=== PATIENT | female | born 1955 | race Caucasian/White ===

== ENCOUNTER 2017-05-20 22:35 | Emergency (ER) | payer OTHER ==
[2017-05-20] MEDS ORDERED: Ondansetron 4 MG/2 ML SDV IV ONE (23:11)
[2017-05-20] MEDS ORDERED: HYDROmorphone 1 MG/ML Syringe IVPUSH ONE ×2 (23:11→23:41)
[2017-05-20] MEDS ORDERED: Diphtheria,Pertussis(Acell),Tetanus Vaccine 0.5 ML SDV IM ONE (23:14)
[2017-05-20 23:31] LABS: CHLORIDE,CL 98 mmol/L (101-111); SODIUM,NA 133 mmol/L (135-145)
[2017-05-21] MEDS ORDERED: Lidocaine 1% 30 ML SDV INJECT ONE (00:07)
[2017-05-21 00:15] VITALS: BP 155/97
[2017-05-21] MEDS ORDERED: cefTRIAXone 1 GM in Sodium Chloride 0.9% 50 ML IV ONE (00:15)
[2017-05-21] MEDS ORDERED: LORazepam 2 MG/ML Syringe IVPUSH ONE (00:50)
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
== END 2017-05-21 01:25 ==
LOC: DL.ED 22:35
DX: S68.623A Partial traumatic transphalangeal amputation of left middle finger, initial encounter (principal); S66.822A Laceration of other specified muscles, fascia and tendons at wrist and hand level, left hand, initial encounter; Z23 Encounter for immunization; Z79.82 Long term (current) use of aspirin; Z79.899 Other long term (current) drug therapy; W34.00XA Accidental discharge from unspecified firearms or gun, initial encounter
CPT/HCPCS: 12002; 36415; 73120; 80053; 85025; 90471; 90715; 96365; 96375; 99284; J0696; J1170; J2060; J2405; J7050